=== PATIENT | male | born 1940 | race Caucasian/White ===

== ENCOUNTER → 2017-08-15 | Day surgery (SDC) | payer OTHER ==
[2017-08-12 14:12] LABS: Basophils # (auto) 0 uL; Basophils % (auto) 0.5 % (0.0-2.0); Eosinophils # (auto) 0.2 uL; Eosinophils % (auto) 2.3 % (0.0-7.0); Hematocrit 43.7 % (41.0-53.0); Hemoglobin 14.7 g/dL (13.5-17.5); Lymphocytes # (auto) 2.9 uL; Lymphocytes % (auto) 28.9 % (10.0-50.0); Mean Corpuscular Hgb Conc. 33.5 g/dL (32.0-36.0); Mean Corpuscular Volume 89.5 fL (80.0-100.0); Mean Platelet Volume 7.8 fL (6.9-10.8); Monocytes # (auto) 0.9 uL; Monocytes % (auto) 9.5 % (0.0-12.0); Neutrophils # (auto) 5.8 uL; Neutrophils % (auto) 58.8 % (37.0-80.0); Nucleated Red Blood Cells % 0.1 %; Platelet Count (auto) 188 10^3/uL (140-450); White Blood Cell 9.9 10^3/uL (4.4-10.8)
[2017-08-12 14:20] LABS: Urine Bilirubin Negative (Negative); Urine Blood TRACE /uL (Negative); Urine Color Yellow (Yellow); Urine Glucose Normal (Normal); Urine Ketone Negative (Negative); Urine Mucus FEW (None Seen); Urine Nitrite Negative (Negative); Urine RBC 1 /hpf (0 - 3); Urine Urobilinogen Normal (Negative); Urine pH 5.5 (5.0-8.0)
[2017-08-12 14:27] LABS: INR 0.98 (0.9-1.15); Partial Thromboplastin Time 28.6 sec (22.64-33.71); Prothrombin Time 10.7 sec (9.37-12.3)
[2017-08-12 14:33] LABS: Albumin 3.6 g/dL (3.4-5.0); BUN/Creatinine Ratio 17.5; Bilirubin, Total 0.4 mg/dL (0.2-1.0); Calcium 8.7 mg/dL (8.5-10.1); Potassium 4.3 mmol/L (3.5-5.1); Total Protein 7.3 g/dL (6.4-8.2)
[~2017-08-15] VITALS: Ht 175.3 cm; Wt 102.1 kg
[~2017-08-15] MED LIST: BUPIVACAINE 0.25% INJ 50ML VIAL ONE; DIPY50TA PO; GLYCOPYRROLATE 0.2 MG/ML 1ML VIAL ONE; HYDROmorphone HCL 2 MG/ML VL IV PRN; LEVO75TA42 PO; MEPERIDINE HCL (50 MG/ML) 1 ML VIAL ONE; METOCLOPRAMIDE HCL 5MG/ml INJ 2ml VIAL IV ONE; MIDAZOLAM HCL 1MG/1ML-2 ML VIAL ONE; NEOSTIGMINE 1 MG/ML INJ (10mg/10ML VIAL) ONE; PROPOFOL 10 MG/ML 20 ML IV ONE; ROCURONIUM 10MG/ML 10ML VIAL IV ONE; SODIUM CHLORIDE LOCK 10 ML ONE; ceFAZolin 1GM VL ONE; ceFAZolin 1GM/50ML 50 ML IV ONE; fentaNYL CITRATE 100 MCG/2 ML VL ONE; fentaNYL CITRATE 5 ML ONE
[2017-08-15 13:45] VITALS: BP 127/70
== END | disposition home or self-care (01) ==
LOC: SUR 07:01
PROVIDERS: ATTEND Surgery
DX: K40.20 Bilateral inguinal hernia, without obstruction or gangrene, not specified as recurrent (principal); D69.6 Thrombocytopenia, unspecified; Z90.49 Acquired absence of other specified parts of digestive tract
CPT/HCPCS: 36415; 49650; 80053; 81001; 85025; 85610; 85730; 86850; 86900; 86901; C1713; C1781; J0690; J2175; J2250; J2704; J3010; J3490; J7030; S2900